=== PATIENT | male | born 1955 | race Native Hawaiian/Other Pacific Islander ===

== ENCOUNTER 2022-08-01 05:25 | Emergency (ER) | payer OTHER ==
[~2022-08-01] VITALS: Ht 170.2 cm; Wt 72.6 kg
[2022-08-01 05:30] VITALS: TEMP 97.9
[2022-08-01 06:04] LABS: PLATELET COUNT 177 K/uL (142-355)
[2022-08-01 07:24] VITALS: BP 134/74
== END 2022-08-01 07:24 | disposition home or self-care (01) ==
LOC: ED 05:25
PROVIDERS: Emergency Medicine Emergency Medical Services
PROC: 2Y41X5Z Packing of Nasal Region using Packing Material (ICD-10-PCS; principal; 2022-08-01)
DX: R04.0 Epistaxis (principal); I10 Essential (primary) hypertension
CPT/HCPCS: 36415; 85027; 85610; 96361; 96374; 99283; 99284; J0360; J2270; J2405

== ENCOUNTER 2022-08-01 10:30 | Emergency (ER) | payer OTHER ==
[~2022-08-01] VITALS: Ht 170.2 cm; Wt 72.6 kg
[2022-08-01 10:30] VITALS: TEMP 97.9
[2022-08-01 12:19] VITALS: BP 151/100
== END 2022-08-01 12:19 | disposition home or self-care (01) ==
LOC: ED 10:30
DX: R04.0 Epistaxis (principal); I16.1 Hypertensive emergency; F17.210 Nicotine dependence, cigarettes, uncomplicated
CPT/HCPCS: 99283